=== PATIENT | male | born 1980 | race Caucasian/White ===

== ENCOUNTER 2021-06-12 13:03 | Emergency (ER) | payer OTHER ==
[~2021-06-12] VITALS: Ht 175.3 cm; Wt 95.5 kg
[2021-06-12] MEDS ORDERED: normal saline 1000ML IV soln IVB ONE (15:20)
[2021-06-12] MEDS: diatr meglu/diatrizoate 30ml oral sol.-(3 dose) bottle PO SCH ×3 (15:31→16:45)
[2021-06-12 15:37] LABS: BASOPHILS % (AUTO) 0.4 % (0-1); EOSINOPHILS # (AUTO) 0.1 X10'3 (0-0.9); EOSINOPHILS % (AUTO) 1.1 % (0-6); HEMATOCRIT 49.7 % (42.0-52.0); HEMOGLOBIN 17.2 g/dl (14.0-17.9); LYMPHOCYTES # (AUTO) 2.5 X10'3 (1.1-4.8); LYMPHOCYTES % (AUTO) 26.2 % (21-51); MEAN CORPUSCULAR HEMOGLOBIN 31.5 PG (27.0-31.0); MEAN CORPUSCULAR HGB CONC 34.6 g/dL (33.0-36.5); MEAN CORPUSCULAR VOLUME 91.1 FL (78-98); MEAN PLATELET VOLUME 7.5 FL (7.4-10.4); MONOCYTES % (AUTO) 10.8 % (2-12); NEUTROPHILS # (AUTO) 5.8 X10'3 (1.8-7.7); NEUTROPHILS % (AUTO) 61.5 % (42-75); PLATELET COUNT 227 X10'3 (140-440); RED BLOOD COUNT 5.45 X10'6 (4.70-6.10); RED CELL DISTRIBUTION WIDTH 13.2 % (11.5-14.5); WHITE BLOOD COUNT 9.4 X10'3 (4.5-11.0)
[2021-06-12 15:50] LABS: ALANINE AMINOTRANSFERASE 27 U/L (12-78); ALBUMIN/GLOBULIN RATIO 1.3 (1.1-1.5); ALKALINE PHOSPHATASE 83 IU/L (46-116); ANION GAP 9 (8-16); ASPARTATE AMINO TRANSFERASE 17 U/L (10-37); BILIRUBIN,TOTAL 0.5 MG/DL (0.1-1.0); BLOOD UREA NITROGEN 17 MG/DL (7-18); BUN/CREATININE RATIO 16.7 (5.4-32.0); CALCIUM 8.2 MG/DL (8.5-10.1); CHLORIDE 106 MMOL/L (99-107); CREATININE 1.02 MG/DL (0.60-1.10); GLUCOSE 102 MG/DL (70-104); POTASSIUM 4.1 MMOL/L (3.5-5.1); SODIUM 140 MMOL/L (135-145); TOTAL CARBON DIOXIDE 24.7 MMOL/L (24-32); eGFR 81 ML/MIN
--- NOTE | 2021-06-12 16:16 | NUR ---
Pt requesting to hold off on piv until seen by doctor.
[2021-06-12] MEDS ORDERED: iohexol 300mg/ml 100ml inj. ONE (16:23)
[2021-06-12 18:45] LABS: CLARITY,URINE SLIGHTLY CLOUDY (Clear); COLOR,URINE YELLOW (Yellow); GLUCOSE, URINE NEGATIVE (Neg); KETONES,URINE NEGATIVE (Neg); LEUKOCYTE ESTERASE ,URINE NEGATIVE (Neg); NITRITES, URINE NEGATIVE (Neg); OCCULT BLOOD,URINE LARGE (Neg); PROTEIN,URINE 30 mg/dl (Neg)
[2021-06-12 18:46] LABS: UA COLLECTION TYPE VOIDED
[2021-06-12 19:06] LABS: BACTERIA,URINE NONE SEEN /HPF (Neg); MUCUS STRANDS NONE SEEN /LPF (Neg); SQUAMOUS EPITHELIAL CELL,UR NONE SEEN /LPF (FEW); WBC,URINE NONE SEEN /HPF (0-4)
[2021-06-12 19:09] VITALS: BP 141/86
== END 2021-06-12 19:11 | disposition home or self-care (01) ==
LOC: ER 13:05
DX: S30.1XXA Contusion of abdominal wall, initial encounter (principal); R10.33 Periumbilical pain; K42.9 Umbilical hernia without obstruction or gangrene; F17.200 Nicotine dependence, unspecified, uncomplicated; Z90.89 Acquired absence of other organs; Z72.89 Other problems related to lifestyle; Z98.890 Other specified postprocedural states; Z88.1 Allergy status to other antibiotic agents; Z88.8 Allergy status to other drugs, medicaments and biological substances; W01.0XXA Fall on same level from slipping, tripping and stumbling without subsequent striking against object, initial encounter; Y93.89 Activity, other specified; Y92.89 Other specified places as the place of occurrence of the external cause; Y99.8 Other external cause status
CPT/HCPCS: 36415; 74177; 80053; 81001; 85025; 99285; Q9963; Q9967

== ENCOUNTER 2024-10-15 18:41 | Emergency (ER) | payer OTHER, BC ==
[~2024-10-15] VITALS: Ht 175.3 cm; Wt 106.4 kg
[2024-10-15 18:53] VITALS: BP 147/99; PULSE 78; RESP 14; O2SAT 97
[2024-10-15] MEDS: TETanus/Pertussis (Acell)/Diphther VAC/PF (Tdap-Adult) 0.5ml syringe IMVAC ONE (20:33)
[2024-10-15] MEDS ORDERED: AMOX-580 PO (20:54)
[2024-10-15] MEDS: LIDOcaine 1% 30ml preserv. free vial SQ STA (20:56)
[2024-10-15 21:01] VITALS: TEMP 98
== END 2024-10-15 21:02 | disposition home or self-care (01) ==
LOC: ER 18:41
DX: S61.412A Laceration without foreign body of left hand, initial encounter (principal); Z90.49 Acquired absence of other specified parts of digestive tract; Z88.1 Allergy status to other antibiotic agents; Z88.5 Allergy status to narcotic agent; Z98.890 Other specified postprocedural states; Z72.89 Other problems related to lifestyle; W45.8XXA Other foreign body or object entering through skin, initial encounter; Y93.89 Activity, other specified; Y92.89 Other specified places as the place of occurrence of the external cause; Y99.0 Civilian activity done for income or pay
CPT/HCPCS: 12001; 73120; 90471; 90715; 99283; A6258; A6449

== ENCOUNTER 2025-03-01 15:52 | Emergency (ER) | payer BC ==
[~2025-03-01] VITALS: Ht 175.3 cm; Wt 104.5 kg
[2025-03-01 16:04] VITALS: BP 142/94; PULSE 93; RESP 18; TEMP 97.6; O2SAT 95
[2025-03-01] MEDS ORDERED: DOXY-411 PO (16:09)
[2025-03-01] MEDS ORDERED: GUAI120015 PO (16:09)
[2025-03-01] MEDS ORDERED: BENZ-38 PO (16:09)
[2025-03-01] MEDS ORDERED: PRED20TA PO (16:09)
[2025-03-01] MEDS ORDERED: ALBU18HF2 INH (16:09)
== END 2025-03-01 16:17 | disposition home or self-care (01) ==
LOC: ER 15:52
DX: J22 Unspecified acute lower respiratory infection (principal); F17.200 Nicotine dependence, unspecified, uncomplicated; Z88.1 Allergy status to other antibiotic agents; Z90.49 Acquired absence of other specified parts of digestive tract; Z79.899 Other long term (current) drug therapy; Z72.89 Other problems related to lifestyle
CPT/HCPCS: 99283